=== PATIENT | female | born 1935 | race Caucasian/White ===

== ENCOUNTER 2020-06-01 11:07 | Inpatient (IN) ==
[2020-06-01] MEDS ORDERED: Ondansetron 4 mg VIAL 2 MG/ML 2 ml VIAL IV PRN (13:43)
[2020-06-01] MEDS ORDERED: HYDROcodone/ACETAMIN 5/325 mg TAB PO PRN (14:40)
[2020-06-01] MEDS ORDERED: Labetalol IV 5 MG/ML 20 ml VIAL IV PUSH PRN (14:44)
[2020-06-02 07:01] LABS: ABS Basophils 0.1 10^3/ul (0-0.2); ABS Lymphocytes 1.5 10^3/ul (1.0-4.8); ABS Monocytes 0.7 10^3/ul (0-0.8); ABS Neutrophils 7.5 10^3/ul (1.5-7.7); Eosinophil % 0.3 %; Hematocrit 39 % (35-47); Hemoglobin 13.1 g/dL (12.0-16.0); Lymphocyte % 15.2 %; Mean Corpuscular HGB Conc 33 g/dL (31-36); Mean Corpuscular Hemoglobin 32 pg (27-31); Mean Corpuscular Volume 95 fL (80-97); Mean Platelet Volume 9.5 fL (7.4-10.4); Nucleated Red Blood Cells % 0.3; Platelet Count 219 10^3/uL (150-450); Red Blood Count 4.12 10^6 /uL (3.70-4.87); Red Cell Distribution Width 13 % (10-15); White Blood Count 9.8 10^3/uL (3.5-10.8)
[2020-06-02 07:14] LABS: BUN/Creatinine Ratio 18.6 (8-20); Calcium 8.7 mg/dL (8.6-10.3); EGFR African American 75.9 (>60); EGFR Non-African American 62.7 (>60); Potassium 4.1 mmol/L (3.5-5.0)
[2020-06-02] MEDS ORDERED: NALOXEGOL 25 MG PO SCH (09:00)
[2020-06-02] MEDS ORDERED: Vitamin THERAPEUTIC TAB PO SCH (09:00)
[2020-06-02] MEDS ORDERED: Venlafaxine XR 75 mg PO SCH (09:00)
[2020-06-02] MEDS ORDERED: NALOXEGOL OXALATE 25 MG PO SCH (12:00)
[2020-06-02 14:05] LABS: Magnesium 1.9 mg/dL (1.9-2.7); Phosphorus 2.8 mg/dL (2.5-5.0)
[2020-06-02] MEDS ORDERED: Gadoteridol (CONTRAST) 279.3 MG/ML 10 ML IV ONE (14:13)
[2020-06-02 14:44] VITALS: BP 157/94
== END 2020-06-02 15:25 | disposition home or self-care (01) | DRG 57 ==
LOC: MEDTELE 11:07 → ED 11:07 → OBSVTOIN 14:00 → MEDTELE 15:58
PROVIDERS: ADMIT Pediatrics; ATTEND Internal Medicine

== ENCOUNTER 2021-04-04 06:19 | Inpatient (IN) ==
[2021-04-04 06:51] LABS: PCO2 Arterial 50 mmHg (35-45); PO2 Arterial 105 mmHg (80-100)
[2021-04-04] MEDS ORDERED: Diltiazem IV BAG D5W Premix 125 MG/125 ML BAG IV SCH (07:00)
[2021-04-04 07:12] LABS: ABS Monocytes 0.2 10^3/ul (0-0.8); ABS Neutrophils 7.5 10^3/ul (1.5-7.7); Eosinophil % 0.1 %; Hematocrit 42 % (35-47); Hemoglobin 14.1 g/dL (12.0-16.0); Lymphocyte % 11.4 %; Mean Corpuscular HGB Conc 34 g/dL (31-36); Mean Corpuscular Hemoglobin 32 pg (27-31); Mean Corpuscular Volume 96 fL (80-97); Nucleated Red Blood Cells % 0.1; Platelet Count 211 10^3/uL (150-450); Red Blood Count 4.37 10^6 /uL (3.70-4.87); Red Cell Distribution Width 13 % (10-15); White Blood Count 8.8 10^3/uL (3.5-10.8)
[2021-04-04 07:29] LABS: ALT 129 U/L (7-52); Albumin 3.2 g/dL (3.2-5.2); Albumin/Globulin Ratio 0.9 (1-3); Alkaline Phosphatase 426 U/L (35-149); Blood Urea Nitrogen 23 mg/dL (6-24); CO2 Carbon Dioxide 28 mmol/L (22-32); Calcium 9.6 mg/dL (8.6-10.3); Chloride 102 mmol/L (101-111); Globulin 3.4 g/dL (2-4); Glucose 255 mg/dL (70-100); Sodium 138 mmol/L (135-145); Total Protein 6.6 g/dL (6.4-8.9)
[2021-04-04 07:31] LABS: Troponin I 0.02 ng/mL (<0.03)
[2021-04-04 07:43] LABS: Anion Gap 8 mmol/L (2-11)
[2021-04-04] MEDS ORDERED: Digoxin IV 0.5 MG/2 ML AMP (0.25 MG/ML) IV SLOW PU ONE (11:01)
[2021-04-04] MEDS: Venlafaxine XR 75 mg PO SCH (11:20)
[2021-04-04] MEDS ORDERED: Lactated Ringers 1000 ml BAG 1,000 ML IV ONE (11:20)
[2021-04-04 11:30] LABS: Magnesium 1.8 mg/dL (1.9-2.7)
[2021-04-04] MEDS ORDERED: Magnesium Sulfate 2 gm BAG 2 GM/50 ML BAG IVPB ONE (11:49)
[2021-04-04 12:33] LABS: TSH Ultra Thyroid Stim Horm 1.82 mcIU/mL (0.34-5.60)
[2021-04-04] MEDS ORDERED: Cefepime ADVAN 1 GM in NS 0.9% 50 ML 50 ML IVPB SCH (13:00)
[2021-04-04] MEDS: cloNIDine 0.1 MG PATCH 0.1 MG/24 HR 7 DAY PATCH TRANSDERM SCH (13:45)
[2021-04-04] MEDS: NALOXEGOL OXALATE 25 MG PO SCH (14:02)
[2021-04-04] MEDS: Cefepime 1 GM in Dextrose 1 GM/50 ML BAG IV SCH ×2 (14:21→21:43)
[2021-04-04] MEDS: Diltiazem IV BAG D5W Premix 125 MG/125 ML BAG IV SCH ×2 (14:52→22:14)
[2021-04-04 17:04] LABS: Potassium Redraw 4.4 mmol/L (3.5-5.0)
[2021-04-04] MEDS: HYDROcodone/ACETAMIN 5/325 mg TAB PO SCH (21:42)
[2021-04-04] MEDS: CMCS:Levetiracetam XR 500 MG TAB.XR PO SCH (21:43)
[2021-04-05] MEDS: Diltiazem IV BAG D5W Premix 125 MG/125 ML BAG IV SCH ×3 (04:53→21:01)
[2021-04-05] MEDS: HYDROcodone/ACETAMIN 5/325 mg TAB PO SCH ×2 (08:18→20:59)
[2021-04-05] MEDS: NALOXEGOL OXALATE 25 MG PO SCH (08:20)
[2021-04-05] MEDS: Multivitamins/Minerals TAB PO SCH (08:20)
[2021-04-05] MEDS: NF:Mirabegron 25 mg ER TAB (NF) PO SCH (08:23)
[2021-04-05] MEDS: Venlafaxine XR 75 mg PO SCH (08:23)
[2021-04-05 09:19] LABS: ABS Eosinophils 0.1 10^3/ul (0-0.6); ABS Lymphocytes 1.2 10^3/ul (1.0-4.8); ABS Monocytes 0.8 10^3/ul (0-0.8); ABS Neutrophils 8.4 10^3/ul (1.5-7.7); Eosinophil % 0.7 %; Hematocrit 43 % (35-47); Hemoglobin 13.9 g/dL (12.0-16.0); Lymphocyte % 11.3 %; Mean Corpuscular HGB Conc 33 g/dL (31-36); Mean Corpuscular Hemoglobin 31 pg (27-31); Mean Corpuscular Volume 96 fL (80-97); Nucleated Red Blood Cells % 0.1; Platelet Count 302 10^3/uL (150-450); Red Blood Count 4.43 10^6 /uL (3.70-4.87); Red Cell Distribution Width 14 % (10-15); White Blood Count 10.5 10^3/uL (3.5-10.8)
[2021-04-05 09:37] LABS: C Reactive Protein 44.62 mg/L (<8.01); Calcium 9.3 mg/dL (8.6-10.3); Potassium 4.1 mmol/L (3.5-5.0)
[2021-04-05] MEDS: Cefepime 1 GM in Dextrose 1 GM/50 ML BAG IV SCH ×2 (10:42→21:43)
[2021-04-05] MEDS ORDERED: Perflutren Lipid Microsphere 3 ML VIAL ONE (12:13)
[2021-04-05 14:02] LABS: Magnesium 1.7 mg/dL (1.9-2.7)
[2021-04-05] MEDS ORDERED: Magnesium Sulfate IV 1GM/100ML 1 GM/100 ML BAG IV ONE (15:11)
[2021-04-05] MEDS ORDERED: Dextrose 50% Syringe 50 ml 25 GM/50 ML SYRINGE IV PUSH PRN (17:04)
[2021-04-05] MEDS ORDERED: Diltiazem IV push/loading dose 5 MG/ML 5 ML vial (25 mg) IV SLOW PU ONE ×2 (19:39→19:59)
[2021-04-05] MEDS: CMCS:Levetiracetam XR 500 MG TAB.XR PO SCH (20:49)
[2021-04-05 21:16] LABS: Magnesium 2.3 mg/dL (1.9-2.7); Potassium 3.9 mmol/L (3.5-5.0)
[2021-04-05] MEDS ORDERED: Digoxin IV 0.5 MG/2 ML AMP (0.25 MG/ML) IV SLOW PU ONE (21:17)
[2021-04-05] MEDS ORDERED: Furosemide 20 mg/2 ml IV VIAL IV SLOW PU ONE (21:24)
[2021-04-05 21:49] LABS: PCO2 Arterial 46 mmHg (35-45); PO2 Arterial 78 mmHg (80-100)
[2021-04-06] MEDS ORDERED: Metoprolol Tartrate 5 mg VIAL 5 ml VIAL (1 mg/ml) IV ONE (01:49)
[2021-04-06] MEDS ORDERED: Furosemide 40 mg/4 ml IV VIAL IV SLOW PU ONE (01:51)
[2021-04-06] MEDS ORDERED: Diltiazem IV push/loading dose 5 MG/ML 5 ML vial (25 mg) IV SLOW PU ONE (04:07)
[2021-04-06] MEDS ORDERED: Digoxin IV 0.5 MG/2 ML AMP (0.25 MG/ML) IV SLOW PU ONE (04:08)
[2021-04-06] MEDS ORDERED: Diltiazem IV push/loading dose 5 MG/ML 5 ML vial (25 mg) ONE (04:13)
[2021-04-06] MEDS ORDERED: Digoxin IV 0.5 MG/2 ML AMP (0.25 MG/ML) ONE (04:19)
[2021-04-06 06:12] LABS: ABS Basophils 0.1 10^3/ul (0-0.2); ABS Eosinophils 0.1 10^3/ul (0-0.6); ABS Lymphocytes 0.9 10^3/ul (1.0-4.8); ABS Monocytes 0.8 10^3/ul (0-0.8); ABS Neutrophils 8.8 10^3/ul (1.5-7.7); Eosinophil % 0.7 %; Hematocrit 42 % (35-47); Hemoglobin 13.8 g/dL (12.0-16.0); Lymphocyte % 8.4 %; Mean Corpuscular HGB Conc 33 g/dL (31-36); Mean Corpuscular Hemoglobin 31 pg (27-31); Mean Corpuscular Volume 95 fL (80-97); Mean Platelet Volume 10.5 fL (7.4-10.4); Nucleated Red Blood Cells % 0.1; Platelet Count 309 10^3/uL (150-450); Red Cell Distribution Width 13 % (10-15); White Blood Count 10.7 10^3/uL (3.5-10.8)
[2021-04-06 06:30] LABS: Albumin 3.2 g/dL (3.2-5.2); Albumin/Globulin Ratio 0.9 (1-3); Globulin 3.5 g/dL (2-4); Potassium 3.6 mmol/L (3.5-5.0); Total Bilirubin 0.7 mg/dL (0.2-1.0); Total Protein 6.7 g/dL (6.4-8.9)
[2021-04-06] MEDS: Multivitamins/Minerals TAB PO SCH (08:45)
[2021-04-06] MEDS: Venlafaxine XR 75 mg PO SCH (08:45)
[2021-04-06] MEDS: HYDROcodone/ACETAMIN 5/325 mg TAB PO SCH ×2 (08:45→22:27)
[2021-04-06] MEDS: NALOXEGOL OXALATE 25 MG PO SCH (08:54)
[2021-04-06] MEDS: Cefepime 1 GM in Dextrose 1 GM/50 ML BAG IV SCH ×2 (12:35→22:47)
[2021-04-06 13:14] LABS: Magnesium 1.8 mg/dL (1.9-2.7); Phosphorus 3.1 mg/dL (2.5-5.0)
[2021-04-06] MEDS: NF:Mirabegron 25 mg ER TAB (NF) PO SCH (15:39)
[2021-04-06] MEDS: Diltiazem IV BAG D5W Premix 125 MG/125 ML BAG IV SCH (17:33)
[2021-04-06] MEDS: CMCS:Levetiracetam XR 500 MG TAB.XR PO SCH (22:27)
[2021-04-07 08:19] LABS: ABS Lymphocytes 0.6 10^3/ul (1.0-4.8); ABS Monocytes 0.6 10^3/ul (0-0.8); ABS Neutrophils 9.7 10^3/ul (1.5-7.7); Eosinophil % 0.2 %; Hematocrit 43 % (35-47); Hemoglobin 14.2 g/dL (12.0-16.0); Lymphocyte % 5.9 %; Mean Corpuscular HGB Conc 33 g/dL (31-36); Mean Corpuscular Hemoglobin 31 pg (27-31); Mean Corpuscular Volume 95 fL (80-97); Mean Platelet Volume 10.5 fL (7.4-10.4); Nucleated Red Blood Cells % 0.1; Platelet Count 330 10^3/uL (150-450); Red Blood Count 4.56 10^6 /uL (3.70-4.87); Red Cell Distribution Width 13 % (10-15)
[2021-04-07 08:36] LABS: Albumin 3.4 g/dL (3.2-5.2); Albumin/Globulin Ratio 0.9 (1-3); Calcium 9.3 mg/dL (8.6-10.3); Globulin 3.8 g/dL (2-4); Potassium 4.1 mmol/L (3.5-5.0); Total Bilirubin 0.7 mg/dL (0.2-1.0); Total Protein 7.2 g/dL (6.4-8.9)
[2021-04-07] MEDS: NF:Mirabegron 25 mg ER TAB (NF) PO SCH (10:38)
[2021-04-07] MEDS: [UNRECOGNIZED DRUG - OTHER] PO SCH (10:38)
[2021-04-07] MEDS: HYDROcodone/ACETAMIN 5/325 mg TAB PO SCH (10:38)
[2021-04-07] MEDS: Multivitamins/Minerals TAB PO SCH (10:38)
[2021-04-07] MEDS: Venlafaxine XR 75 mg PO SCH (10:39)
[2021-04-07 12:06] LABS: Hepatitis B Surface Antigen Nonreactive (Nonreactive)
[2021-04-07 12:11] LABS: Hepatitis A Ab IgM Negative (Negative)
[2021-04-07 12:12] LABS: Hepatitis B Core IgM Nonreactive (Nonreactive)
[2021-04-07 12:23] LABS: Hepatitis C Antibody Negative (Negative)
[2021-04-07] MEDS: NS 0.9% 1000 ml BAG 1,000 ML IV SCH (12:32)
[2021-04-07] MEDS ORDERED: Diltiazem IV push/loading dose 5 MG/ML 5 ML vial (25 mg) IV SLOW PU ONE (13:23)
[2021-04-07] MEDS: Metoprolol Tartrate 5 mg VIAL 5 ml VIAL (1 mg/ml) IV SCH ×2 (16:18→21:04)
[2021-04-07] MEDS ORDERED: LORazepam 2 mg VIAL 1 ml IV PUSH PRN (16:52)
[2021-04-07] MEDS ORDERED: Lorazepam PYXIS KEY PRN (16:52)
[2021-04-07 16:55] LABS: Influenza A Molecular Negative (Negative); Influenza B Molecular Negative (Negative)
[2021-04-07] MEDS ORDERED: HYDROcodone/ACETAMIN 5/325 mg TAB PO PRN (16:55)
[2021-04-07] MEDS ORDERED: Digoxin IV 0.5 MG/2 ML AMP (0.25 MG/ML) IV SLOW PU ONE (17:33)
[2021-04-07] MEDS ORDERED: levETIRAcetam 500 MG IVPREMIX 500 MG/100 ML BAG IV SCH (21:00)
[2021-04-07] MEDS: CMCS:Levetiracetam XR 500 MG TAB.XR PO SCH (21:12)
[2021-04-07] MEDS ORDERED: Diltiazem IV BAG D5W Premix 125 MG/125 ML BAG IV SCH (23:45)
[2021-04-08] MEDS: Diltiazem IV BAG D5W Premix 125 MG/125 ML BAG IV SCH ×3 (01:48→22:32)
[2021-04-08] MEDS: NS 0.9% 1000 ml BAG 1,000 ML IV SCH (02:14)
[2021-04-08] MEDS: Metoprolol Tartrate 5 mg VIAL 5 ml VIAL (1 mg/ml) IV SCH ×4 (03:39→22:59)
[2021-04-08 06:20] LABS: ABS Basophils 0.1 10^3/ul (0-0.2); ABS Lymphocytes 0.6 10^3/ul (1.0-4.8); ABS Monocytes 0.8 10^3/ul (0-0.8); ABS Neutrophils 11.2 10^3/ul (1.5-7.7); Eosinophil % 0.1 %; Hematocrit 41 % (35-47); Hemoglobin 13.9 g/dL (12.0-16.0); Lymphocyte % 4.9 %; Mean Corpuscular HGB Conc 34 g/dL (31-36); Mean Corpuscular Hemoglobin 32 pg (27-31); Mean Corpuscular Volume 94 fL (80-97); Mean Platelet Volume 10.7 fL (7.4-10.4); Platelet Count 301 10^3/uL (150-450); Red Blood Count 4.39 10^6 /uL (3.70-4.87); Red Cell Distribution Width 13 % (10-15); White Blood Count 12.7 10^3/uL (3.5-10.8)
[2021-04-08 06:37] LABS: Albumin 3.3 g/dL (3.2-5.2); Calcium 8.5 mg/dL (8.6-10.3); Globulin 3.3 g/dL (2-4); Potassium 3.3 mmol/L (3.5-5.0); Total Bilirubin 0.8 mg/dL (0.2-1.0); Total Protein 6.6 g/dL (6.4-8.9)
[2021-04-08 08:39] LABS: Magnesium 1.7 mg/dL (1.9-2.7)
[2021-04-08] MEDS: KCL 20 MEQ/100 ML IVPREMIX 20 MEQ/100 ML BAG IV SCH ×2 (08:59→13:26)
[2021-04-08] MEDS: Venlafaxine XR 75 mg PO SCH (09:05)
[2021-04-08] MEDS: Multivitamins/Minerals TAB PO SCH (09:05)
[2021-04-08] MEDS: [UNRECOGNIZED DRUG - OTHER] PO SCH (09:24)
[2021-04-08] MEDS: NF:Mirabegron 25 mg ER TAB (NF) PO SCH (09:24)
[2021-04-08] MEDS ORDERED: LORazepam 2 mg VIAL 1 ml IV PUSH ONE (09:34)
[2021-04-08] MEDS ORDERED: Iohexol 350 (CONTRAST) 500 ML MDV IV ONE (09:37)
[2021-04-08 12:48] LABS: ABS Lymphocytes 0.5 10^3/ul (1.0-4.8); ABS Monocytes 0.5 10^3/ul (0-0.8); ABS Neutrophils 9.8 10^3/ul (1.5-7.7); Eosinophil % 0.1 %; Hematocrit 42 % (35-47); Hemoglobin 14.1 g/dL (12.0-16.0); Lymphocyte % 4.6 %; Mean Corpuscular HGB Conc 34 g/dL (31-36); Mean Corpuscular Hemoglobin 32 pg (27-31); Mean Corpuscular Volume 94 fL (80-97); Mean Platelet Volume 10.2 fL (7.4-10.4); Nucleated Red Blood Cells % 0.1; Platelet Count 298 10^3/uL (150-450); Red Blood Count 4.44 10^6 /uL (3.70-4.87); Red Cell Distribution Width 13 % (10-15); White Blood Count 10.9 10^3/uL (3.5-10.8)
[2021-04-08] MEDS ORDERED: Hydrocortisone INJ 250 MG VIAL IV ONE ×3 (12:58→20:00)
[2021-04-08] MEDS ORDERED: LORazepam 2 mg VIAL 1 ml IV PUSH SCH (13:00)
[2021-04-08 13:12] LABS: ALT 73 U/L (7-52); AST 59 U/L (13-39); Albumin 3.3 g/dL (3.2-5.2); Albumin/Globulin Ratio 0.9 (1-3); Alkaline Phosphatase 414 U/L (35-149); Anion Gap 8 mmol/L (2-11); Blood Urea Nitrogen 12 mg/dL (6-24); CO2 Carbon Dioxide 31 mmol/L (22-32); Calcium 8.8 mg/dL (8.6-10.3); Chloride 99 mmol/L (101-111); Globulin 3.5 g/dL (2-4); Glucose 234 mg/dL (70-100); Potassium 3.7 mmol/L (3.5-5.0); Sodium 138 mmol/L (135-145); Total Protein 6.8 g/dL (6.4-8.9)
[2021-04-08] MEDS ORDERED: levETIRAcetam 500 MG IVPREMIX 500 MG/100 ML BAG IV ONE (14:09)
[2021-04-08] MEDS ORDERED: diPHENhydraMINE IV 50 MG/ML 1 ml VIAL (BENADRYL) IV ONE ×2 (17:00→20:00)
[2021-04-08 18:34] LABS: Activated Partial Thrombo Time 26.3 seconds (26.0-38.0); Fibrinogen 417.3 mg/dL (110.8-404.3); INR 1.4 (0.86-1.15)
[2021-04-08] MEDS ORDERED: Magnesium Sulfate 2 gm BAG 2 GM/50 ML BAG IVPB ONE (18:55)
[2021-04-08 19:03] LABS: Vitamin B12 > 1450 pg/mL (180-914)
[2021-04-08] MEDS: levETIRAcetam 500 MG IVPREMIX 500 MG/100 ML BAG IV SCH (21:44)
[2021-04-08] MEDS: Nystatin TOP POWDER 15 GM BTL TOPICAL SCH (22:35)
[2021-04-09] MEDS: Metoprolol Tartrate 5 mg VIAL 5 ml VIAL (1 mg/ml) IV SCH ×5 (05:09→21:28)
[2021-04-09] MEDS: Levothyroxine 100 MCG/5 ML VIAL IV SCH (05:09)
[2021-04-09] MEDS: [UNRECOGNIZED DRUG - OTHER] PO SCH (07:48)
[2021-04-09] MEDS: Venlafaxine XR 75 mg PO SCH (07:48)
[2021-04-09] MEDS: Multivitamins/Minerals TAB PO SCH (07:48)
[2021-04-09] MEDS: NF:Mirabegron 25 mg ER TAB (NF) PO SCH (07:48)
[2021-04-09] MEDS ORDERED: Lactated Ringers 1000 ml BAG 1,000 ML IV SCH (08:00)
[2021-04-09] MEDS: levETIRAcetam 500 MG IVPREMIX 500 MG/100 ML BAG IV SCH ×2 (08:09→21:31)
[2021-04-09] MEDS: Nystatin TOP POWDER 15 GM BTL TOPICAL SCH ×3 (08:12→21:35)
[2021-04-09] MEDS ORDERED: Digoxin IV 0.5 MG/2 ML AMP (0.25 MG/ML) IV SLOW PU SCH (09:00)
[2021-04-09 11:30] LABS: C Reactive Protein 38.92 mg/L (<8.01); Calcium 8.7 mg/dL (8.6-10.3)
[2021-04-09] MEDS: Diltiazem IV BAG D5W Premix 125 MG/125 ML BAG IV SCH (11:46)
[2021-04-09 12:09] LABS: Digoxin 3.3 ng/ml (0.8-2.0)
[2021-04-09] MEDS ORDERED: Furosemide 40 mg/4 ml IV VIAL IV ONE (16:51)
[2021-04-10] MEDS: Metoprolol Tartrate 5 mg VIAL 5 ml VIAL (1 mg/ml) IV SCH ×6 (01:32→21:51)
[2021-04-10] MEDS: Diltiazem IV BAG D5W Premix 125 MG/125 ML BAG IV SCH ×2 (01:38→14:44)
[2021-04-10] MEDS: Levothyroxine 100 MCG/5 ML VIAL IV SCH (05:16)
[2021-04-10] MEDS: Multivitamins/Minerals TAB PO SCH ×2 (07:47→12:54)
[2021-04-10] MEDS: [UNRECOGNIZED DRUG - OTHER] PO SCH (07:47)
[2021-04-10] MEDS: Venlafaxine XR 75 mg PO SCH ×2 (07:47→12:56)
[2021-04-10] MEDS: NF:Mirabegron 25 mg ER TAB (NF) PO SCH (07:47)
[2021-04-10] MEDS: Nystatin TOP POWDER 15 GM BTL TOPICAL SCH ×3 (07:47→22:56)
[2021-04-10] MEDS: levETIRAcetam 500 MG IVPREMIX 500 MG/100 ML BAG IV SCH ×2 (07:52→22:23)
[2021-04-10] MEDS ORDERED: Furosemide 40 mg/4 ml IV VIAL IV ONE (12:18)
[2021-04-10 16:14] LABS: ALP Intestine 1.9 IU/L (0.0-11.0); ALP Liver 1 285.7 IU/L (16.2-70.2); ALP Liver 1% 60.4 % (27.8-76.3); ALP Liver 2 141.4 IU/L (0.0-5.8); ALP Liver 2% 29.9 % (0.0-8.0); ALP Placental NotPresent; Alkaline Phosphate 473 U/L (35 - 104)
[2021-04-10] MEDS ORDERED: Digoxin IV 0.5 MG/2 ML AMP (0.25 MG/ML) IV SLOW PU SCH (17:00)
[2021-04-11] MEDS: Metoprolol Tartrate 5 mg VIAL 5 ml VIAL (1 mg/ml) IV SCH ×3 (02:08→08:32)
[2021-04-11] MEDS: Diltiazem IV BAG D5W Premix 125 MG/125 ML BAG IV SCH (03:40)
[2021-04-11] MEDS ORDERED: Piperacillin/Tazobac ADVAN 3.375 GM in NS 0.9% 100 ml BAG 100 ML IV ONE (07:30)
[2021-04-11] MEDS ORDERED: LORazepam 2 mg VIAL 1 ml IV PUSH PRN (07:59)
[2021-04-11] MEDS ORDERED: Lorazepam PYXIS KEY PRN (07:59)
[2021-04-11] MEDS ORDERED: Morphine 2 MG/ML SYRINGE IV PRN (08:00)
[2021-04-11] MEDS ORDERED: Zosyn per Pharmacy NOTE FOLLOW UP SCH (08:00)
[2021-04-11] MEDS ORDERED: Atropine 1% (ORAL/SL) 15 ML BTL SL PRN (08:01)
[2021-04-11 08:18] VITALS: BP 78/50
[2021-04-11] MEDS: Levothyroxine 100 MCG/5 ML VIAL IV SCH (08:32)
[2021-04-11] MEDS: cloNIDine 0.1 MG PATCH 0.1 MG/24 HR 7 DAY PATCH TRANSDERM SCH (11:11)
[2021-04-11] MEDS ORDERED: Digoxin IV 0.5 MG/2 ML AMP (0.25 MG/ML) IV SLOW PU SCH (17:00)
== END 2021-04-11 12:04 | disposition expired | DRG 308 ==
LOC: ED 06:19 → EDHOLD 09:46 → SUATTDRO 09:46 → MEDTELE 11:00
PROVIDERS: ADMIT Internal Medicine; ATTEND Internal Medicine